=== PATIENT | male | born 1955 | race Caucasian/White ===

== ENCOUNTER 2019-02-12 15:08 | Emergency (ER) | payer OTHER ==
[~2019-02-12] VITALS: Ht 162.6 cm; Wt 63.5 kg
[2019-02-12 15:13] VITALS: BP 133/84
--- NOTE | 2019-02-12 15:40 | NUR ---
PT BIB SON FOR LT HIP PAIN S/P HIP SURGERY 1.5 MONTHS AGO. PT IS CONSERNED BECAUSE HE IS STILL NOT ABLE TO PERFORM ADLS INDEPENETLY, SON IS CONCERNED BECAUSE PT REPORTS DIZZINESS W/ WALKING. PT REPORTS ACHY PAIN AT 7/10 IN LT HIP THAT RADIATES DOWN TO LT KNEE AND OCCASIONALLY DOWN TO LT FOOT, AND INCREASES WITH WALKING AND STRETCHING. PT TX W/ MOTRIN W/ RELIEF. + CMS. VSS. ER TO SEE PT. MEDHX:LT HIP SURGERY RX:MOTRIN, ELIQUIS, ASPIRIN
[2019-02-12 16:49] VITALS: BP 126/72
--- NOTE | 2019-02-12 16:49 | NUR ---
Patient discharged with v/s stable. Written and verbal after care instructions given and explained. Patient verbalized understanding. Wheel Chair Assisted with to car. All questions addressed prior to discharge. Advised to follow up with PMD.
== END 2019-02-12 16:49 | disposition home or self-care (01) ==
LOC: MED 15:08
DX: G89.18 Other acute postprocedural pain (principal); M25.552 Pain in left hip; Z98.890 Other specified postprocedural states
CPT/HCPCS: 99281